=== PATIENT | female | born 1935 | race Caucasian/White ===

== ENCOUNTER 2018-06-19 15:21 | Emergency (ER) | payer MEDICARE, MEDICAID ==
[~2018-06-19] VITALS: Ht 152.4 cm; Wt 75.7 kg
--- NOTE | 2018-06-19 15:48 | NUR ---
AAOX2, BIB FAMILY C/O RIGHT THIGH PAIN X 10 DAYS. DENIES RECENT FALL OR INJURY. RR IS EVEN AND UNLABORED WITH NAD NOTED. SKIN IS WARM AND DRY. DR SHELBY AT BS FOR EVAL.
[2018-06-19] MEDS ORDERED: CYCLOBENZAPRINE 10 MG TABLET PO ONE (16:00)
[2018-06-19] MEDS ORDERED: CYCLOBENZAPRINE 10 MG TABLET ONE (16:00)
[2018-06-19] MEDS ORDERED: NAPROXEN 250 MG TABLET ONE (16:00)
[2018-06-19] MEDS ORDERED: NAPROXEN 250 MG TABLET PO ONE (16:00)
[2018-06-19 16:50] VITALS: BP 121/63
--- NOTE | 2018-06-19 17:00 | NUR ---
Patient discharged to home in stable condition. Written and verbal after care instructions given. Patient verbalizes understanding of instruction.
== END 2018-06-19 17:42 | disposition home or self-care (01) ==
LOC: ER 15:26
DX: M16.11 Unilateral primary osteoarthritis, right hip (principal); I10 Essential (primary) hypertension; Z88.0 Allergy status to penicillin
CPT/HCPCS: 72170-TC; 73502

== ENCOUNTER 2020-01-24 14:18 | Inpatient (IN) | payer MEDICARE, OTHER ==
[~2020-01-24] VITALS: Ht 154.9 cm; Wt 72.6 kg
[2020-01-24] MEDS ORDERED: ASPIRIN 325 MG TABLET PO ONE (14:30)
[2020-01-24] MEDS ORDERED: ASPIRIN 325 MG TABLET ONE (14:34)
--- NOTE | 2020-01-24 14:38 | NUR ---
pt is in bathroom
--- NOTE | 2020-01-24 15:00 | NUR ---
BIBRA FROM HOME TO ER BED 7. AAOX4. NOT IN RESP DISTRTESS, BREATHING EVEN AND UNLABORED. AMBULATORY. PT IS BURUNDIAN SPEAKING, INFORMATION WAS RECEIVED FROM CAREGIVER. CAME IN FOR MID STERNAL CHEST PAIN NON RADIATING 08/15 [place]ARP STARTED @ 1300. PT IN NOTED HYPERTENSIVE @ 182/118. MD WAS AT THE BEDSIDE FOR EVAL. ORDERS RECEIVED NTOED AND CARRIED OUT. IV LINE ESTABLSIHED ON LFA 20G. BLOOD DRAWN AND GIVEN TO TRUCK BODY REPAIRER AT BEDSIDE. PT IS ON MONITOR
[2020-01-24] MEDS ORDERED: LINA145C PO (15:02)
[2020-01-24] MEDS ORDERED: CLON0.5T4 PO (15:02)
[2020-01-24] MEDS ORDERED: MECL-159 PO (15:02)
[2020-01-24] MEDS ORDERED: ROSU10TA29 PO (15:02)
[2020-01-24] MEDS ORDERED: OLME20TA13 PO (15:02)
[2020-01-24] MEDS ORDERED: MEMA1CAP3 PO (15:02)
[2020-01-24] MEDS ORDERED: DEXL60CA3 PO (15:02)
[2020-01-24] MEDS ORDERED: VORT20TA PO (15:02)
[2020-01-24] MEDS ORDERED: TEMA7.5C PO (15:02)
[2020-01-24] MEDS ORDERED: MYRBETRIQ PO (15:02)
[2020-01-24 15:05] LABS: CALCIUM, SERUM 9.3 mg/dL (8.5-10.1); CARBON DIOXIDE 24 mmol/L (21-32); CHLORIDE 104 mmol/L (98-107); CREATININE 0.9 mg/dL (0.6-1.3); GLUCOSE 99 mg/dL (74-106); POTASSIUM 3.9 mmol/L (3.5-5.1); SODIUM SERUM 139 mmol/L (136-145); UREA NITROGEN, BLOOD 22 mg/dL (7-18)
--- NOTE | 2020-01-24 15:07 | NUR ---
COVID SWAB DONE SENT TO LAB
[2020-01-24 15:09] LABS: BASOPHILS # (AUTO) 0.1 /CMM (0.0-0.2); BASOPHILS % (AUTO) 0.6 % (0.0-2.0); EOSINOPHILS % (AUTO) 0.5 % (0.0-6.0); HEMATOCRIT 41 % (33-45); HEMOGLOBIN 13.6 g/dL (11.5-14.8); LYMPHOCYTES # (AUTO) 2.5 /CMM (0.8-4.8); MEAN CORPUSCULAR HGB CONC 33 g/dl (31.0-36.0); MEAN CORPUSCULAR VOLUME 86 fL (82-100); MONOCYTES % (AUTO) 7.1 % (2.0-12.0); NEUTROPHILS # (AUTO) 9.7 /CMM (1.8-8.9); NEUTROPHILS % (AUTO) 72.8 % (43.0-81.0); PLATELET COUNT (AUTO) 383 /CMM (150-450); RED BLOOD CELL COUNT(AUTO) 4.78 MIL/uL (4.0-5.2); WHITE BLOOD COUNT (AUTO) 13.4 K/uL (4.3-11.0)
[2020-01-24] MEDS ORDERED: HYDROCODONE/APAP 5/325MG TABLET PO PRN (16:00)
[2020-01-24] MEDS ORDERED: IV 1/2NS 1000 ML 1,000 ML IV PRN (16:00)
[2020-01-24] MEDS ORDERED: TEMAZEPAM 7.5 MG CAPSULE PO PRN (16:00)
[2020-01-24] MEDS ORDERED: MAG HYDROX/AL HYDROX/SIMETH 30 ML UDC PO PRN (16:00)
[2020-01-24] MEDS ORDERED: ZOLPIDEM TARTRATE 5 MG TABLET PO PRN (16:00)
[2020-01-24] MEDS ORDERED: ONDANSETRON HCL/PF 4 MG/2 ML VIAL IVP PRN (16:00)
[2020-01-24] MEDS ORDERED: ACETAMINOPHEN 325 MG TABLET PO PRN (16:00)
[2020-01-24] MEDS ORDERED: MAGNESIUM HYDROXIDE 30 ML UDC PO PRN (16:00)
[2020-01-24] MEDS ORDERED: MORPHINE SULFATE INJ 2 MG/ML DISP.SYRIN IV PRN (16:00)
[2020-01-24] MEDS ORDERED: Z GUARD REMEDY 2 OZ OINT TP PRN (16:00)
[2020-01-24] MEDS ORDERED: clonazePAM 0.5 MG TABLET PO PRN (16:00)
--- NOTE | 2020-01-24 16:26 | NUR ---
got bed 314-1
--- NOTE | 2020-01-24 16:51 | NUR ---
REPORT GIVEN TO DAVE GALLAGHER FOR [facility]
--- NOTE | 2020-01-24 17:09 | NUR ---
pt transported to unit on gurney with emt and rn at bedside w/ acls protocol. nad noted during transport.
--- NOTE | 2020-01-24 17:10 | NUR ---
Patient admitted from ER received report by Mike/DAVE.
[2020-01-24] MEDS: MEMANTINE HCL 5 MG TABLET PO SCH (17:27)
[2020-01-24] MEDS: MECLIZINE HCL 25 MG TABLET PO SCH (17:27)
--- NOTE | 2020-01-24 18:20 | NUR ---
RN Closing note Patient in bed resting non verbal AO x 2. Pt does no appears discomfort, skin is warm to touch keep clean/dry. Respiratory even and unlabored with oxygen O2sat 97%, no sob or distress observed. Kept locked bed and elevated HOB for ensure airway and aspiration precaution, and lowest position for safety, bed alarm on at all the times, call light within reach, will endorse project director.
--- NOTE | 2020-01-24 18:24 | NUR ---
Patient VTE score is 3 MD made aware and waiting new order for prophylaxis.
--- NOTE | 2020-01-24 19:30 | NUR ---
FIELD TALENT QUALIFICATION SPECIALIST OPENING NOTE RECEIVED PATIENT IN BED. A/OX2, ZAMBIAN SPEAKING, ABLE TO MAKE BASIC NEEDS KNOWN WITH LITTLE PUERTO RICAN. TOLERATING ROOM AIR. RESPIRATIONS ARE EVEN AND UNLABORED. NO S/S SOB NOTED. NO C/O CHEST PAIN AT THIS TIME. EXTERNAL TELE MONITOR READS SINUS RHYTHM HR 78. IN NO APPARENT DISTRESS. IV ACCESS IN LFA #20 PATENT AND SALINE LOCKED. BED IS LOW AND LOCKED, HOB ELEVATED IN SEMI FOWLERS, SIDE RAILS UP X2, EDUCATED PATIENT SIEBEL CRM DEVELOPER LIGHT. WILL CONTINUE TO MONITOR.
[2020-01-24 20:00] VITALS: BP 149/70
--- NOTE | 2020-01-24 20:20 | NUR ---
BRUSH HOLDER INSPECTOR NOTE CONSUMER SCIENCE TEACHER VITAL SHOW TEMP 97.5. ASKED PATIENT IF FEELS COLD, STATED YES. WARM BLANKET PROVIDED. WILL CONTINUE TO MONITOR.
[2020-01-24] MEDS ORDERED: ATORVASTATIN 10 MG TABLET PO SCH (22:00)
--- NOTE | 2020-01-24 23:38 | NUR ---
SALAD COUNTER ATTENDANT NOTE INFORMED DR. SHERIE CHAVEZ THAT PATIENT VTE SCORE IS 3. IF ANY CHEMICAL PROPHYLAXIS WOULD LIKE TO BE ORDERED. MD TELEPHONE ORDER LOVENOX 30MG SQ DAILY. ORDER READ BACK NOTED AND CARRIED OUT.
[2020-01-24] MEDS: NITROGLYCERIN 0.4 MG/TAB BOTTLE SL PRN ×2 (23:50→23:58)
--- NOTE | 2020-01-24 23:53 | NUR ---
EARTH BORING MACHINE OPERATOR NOTE ADMINISTERED PRN NITRO D/T C/O CHEST PAIN 09/14 IN MIDSTERNAL CHEST, HURTS WHEN BREATHING, NON RADIATING. BP 167/84. WILL REASSESS IN 5 MINS Addendum: 01/24/20 at 2358 by MAYRA MCBRIDE RN ALSO PLACED PATIENT ON OXYGEN 2L/MIN VIA NASAL CANNULA
--- NOTE | 2020-01-24 23:58 | NUR ---
FARE COLLECTOR NOTE PATIENT STATES NO CHANGE IN PAIN. ADMINISTERED NITRO X2. BP 158/84. WILL CONTINUE TO MONITOR.
[2020-01-25] VITALS: BP_SYST 134; BP_SYST 151; BP_DIAS 64; BP_DIAS 92
[2020-01-25] MEDS: NITROGLYCERIN 0.4 MG/TAB BOTTLE SL PRN (00:12)
--- NOTE | 2020-01-25 00:15 | NUR ---
CEMENT TILE MAKER NOTE ADMINISTERED NITRO X3. PATIENT STATE PAIN IS WORSE. LATE ADMIN D/T PATIENT WANTED TO AMBULATE TO RESTROOM. BP 166/76 WILL CONTINUE TO MONITOR.
--- NOTE | 2020-01-25 00:28 | NUR ---
AIR TRAFFIC CONTROL SUPERVISOR NOTE PATIENT STATES SHE FEELS NO PAIN WHEN NOT MOVING. ASKED IF WAS STILL IN PAIN. PATIENT STATED SHE WANTED TO TRY TO SLEEP. TRIED TO CLARIFY FOR 5 MINUTES. INFORMED HER TO CALL ME IF AND WHEN SHE IS IN PAIN.
--- NOTE | 2020-01-25 01:34 | NUR ---
cable television program director note patient continues to complain of chest pain. 10/15, non radiating. administered prn morphine 2mg. will continue to monitor.
[2020-01-25 04:00] VITALS: BP 142/81
[2020-01-25 06:14] LABS: BASOPHILS # (AUTO) 0.1 /CMM (0.0-0.2); BASOPHILS % (AUTO) 0.6 % (0.0-2.0); EOSINOPHILS % (AUTO) 0.6 % (0.0-6.0); HEMATOCRIT 35 % (33-45); HEMOGLOBIN 11.7 g/dL (11.5-14.8); LYMPHOCYTES # (AUTO) 1.6 /CMM (0.8-4.8); LYMPHOCYTES % (AUTO) 18.6 % (20.0-44.0); MEAN CORPUSCULAR HGB CONC 34 g/dl (31.0-36.0); MEAN CORPUSCULAR VOLUME 84 fL (82-100); MONOCYTES # (AUTO) 0.6 /CMM (0.1-1.30); MONOCYTES % (AUTO) 6.6 % (2.0-12.0); NEUTROPHILS # (AUTO) 6.5 /CMM (1.8-8.9); NEUTROPHILS % (AUTO) 73.6 % (43.0-81.0); PLATELET COUNT (AUTO) 290 /CMM (150-450); WHITE BLOOD COUNT (AUTO) 8.8 K/uL (4.3-11.0)
--- NOTE | 2020-01-25 07:00 | NUR ---
ORDNANCE ARTIFICER CLOSING NOTE PATIENT IS RESTING IN BED. A/OX2, FORGETFUL. ON OXYGEN 2L/MIN VIA NASAL CANNULA.NO RESP DISTRESS. MANAGED EPISODE OF CHEST PAIN WITH NITRO AND MORPHINE. EXTERNAL TELE MONITOR READS SINUS RHYTHM. NO DISTRESS. IV ACCESS MAINTAINED IN LFA #20 RUNING 1/2NS@75ML/HR. BED REMAINS LOW AND LOCKED, HOB ELEVATED IN SEMI FOWLERS, SIDE RAILS UP X2. WILL ENDORSE TO NEXT SHIFT.
[2020-01-25 07:07] LABS: CALCIUM, SERUM 8.6 mg/dL (8.5-10.1); PHOSPHORUS 3.9 mg/dL (2.5-4.9); POTASSIUM 3.9 mmol/L (3.5-5.1)
[2020-01-25 07:34] LABS: THYROID STIMULATING HORMONE 1.594 uIU/mL (0.358-3.74)
--- NOTE | 2020-01-25 07:54 | NUR ---
CLOTHES DESIGNER NOTE PATIENT IN BED RESTING COMFORTABLY. PATIENT IN NO ACUTE DISTRESS. NO SOB NOTED. PATIENT BREATHING IS EVEN AND UNLABORED.PATIENT ON CARDIAC MONITORING READING SINUS RHYTHM HR 68. PATIENT STATES NO CHEST PAIN AT THIS TIME. PATIENT BED ALARM IS ON. SAFETY PRECAUTIONS IN PLACE. PATIENT BED IS LOCKED AND IN LOWEST POSITION. CALL LIGHT WITHIN REACH. WILL CONTINUE TO MONITOR.
[2020-01-25 08:00] VITALS: BP 168/79
[2020-01-25] MEDS: MECLIZINE HCL 25 MG TABLET PO SCH (08:12)
[2020-01-25] MEDS: MEMANTINE HCL 5 MG TABLET PO SCH (08:13)
[2020-01-25] MEDS ORDERED: ENOXAPARIN SODIUM 30 MG/0.3 ML DISP.SYRIN SQ SCH (09:00)
[2020-01-25] MEDS ORDERED: VALSARTAN 80 MG TABLET PO SCH (09:00)
[2020-01-25] MEDS ORDERED: LOSARTAN POTASSIUM 25 MG TABLET PO SCH (09:00)
[2020-01-25] MEDS ORDERED: ASPIRIN EC 81 MG TABLET.DR PO SCH (09:00)
[2020-01-25] MEDS ORDERED: PANTOPRAZOLE 40 MG TABLET.DR PO SCH (09:00)
[2020-01-25] MEDS ORDERED: IOHEXOL-350 100 ML VIAL IV ONE (09:33)
[2020-01-25] MEDS ORDERED: IV NS 0.9% 250 ML IV ONE (09:33)
[2020-01-25] MEDS: METOPROLOL TARTRATE INJ 5 MG/5 ML AMPUL IVP PRN ×2 (10:05→10:10)
[2020-01-25] MEDS ORDERED: METOPROLOL TARTRATE INJ 5 MG/5 ML AMPUL ONE (10:10)
[2020-01-25] MEDS ORDERED: NITROGLYCERIN 0.4 MG/TAB BOTTLE SL ONE (10:30)
[2020-01-25 10:38] VITALS: BP 147/81
--- NOTE | 2020-01-25 10:40 | NUR ---
RN NOTE PATIENT BACK FROM CT ANGIO HEART. PATIENT TOLERATED WELL. PATIENT IN NO ACUTE DISTRESS. PATIENT BREATHING IS EVEN AND UNLABORED. NO SOB NOTED. WILL CONTINUE TO MONITOR.
--- NOTE | 2020-01-25 14:23 | NUR ---
MS RN NOTE PER MIGUEL INSURANCE CLAIM REPRESENTATIVE SHE SPOKE WITH DR. YEBOAH REGARDING CT ANGIO HEART RESULTS. PER MIGUEL, DR. YEBOAH HAS CLEARED PATIENT FOR DISCHARGE.
--- NOTE | 2020-01-25 15:57 | NUR ---
MS RN NOTE SPOKE WITH TUNNEL KILN FIRER ABOUT PATIENTS CAREGIVER BEING IN THE DAY TIME. INFORMED CUATE FOR POSSIBLE HOME HEALTH AND TIRE BUSTER AT NIGHT TIME. PER CUATE SHE WILL SET UP HOME HEALTH AND DR. NAZARIO MADE AWARE. SPOKE WITH SON ERI AND HE IS AWARE AND AGREEABLE WITH HOME HEALTH AT THIS TIME. AND CAREGIVER WILL ADMINISTRATIVE SERVICES SPECIALIST PATIENT FOR DISCHARGE.
--- NOTE | 2020-01-25 16:01 | NUR ---
MS RN NOTE PATIENT REFUSING SKIN ASSESSMENT. EDUCATED RISKS VS BENEFITS. PATIENT CONTINUED TO REFUSE.
--- NOTE | 2020-01-25 16:56 | NUR ---
MS HONING JOB SETTER NOTE PATIENT MEDICALLY STABLE FOR DISCHARGE. PATIENT IN NO ACUTE DISTRESS. NO SOB NOTED. PATIENT BREATHING IS EVEN AND UNLABORED. PATIENT ON RA TOLERATING WELL, SATURATING >95% SPO2. DC INSTRUCTIONS GIVEN TO PATIENT, CAREGIVER, AND SON. PATIENT, CAREGIVER, AND SON VERBALIZED DC INSTRUCTIONS. PATIENT ID BAND REMOVED. PATIENT IVS REMOVED. PATIENT WITH BELONGINGS AND BELONGINGS LIST SIGNED. CUATE COMMUNITY MIDWIFE ARRANGED HOME HEALTH WITH SON. PATIENT KEPT CLEAN, DRY, AND COMFORTABLE THROUGHOUT SHIFT. PATIENT REFUSED SKIN ASSESSMENT, EDUCATED RISKS VS BENEFITS, PATIENT CONTINUED TO REFUSE. EXPLAINED ALL DUE MEDS. PATIENT GOING HOME WITH CAREGIVER, SON AWARE. PATIENT GOING BY WHEELCHAIR TO CAREGIVER FOR PRODUCT SUPPORT REPRESENTATIVE GOING HOME. MD AWARE OF DISCHARGE.
== END 2020-01-25 16:30 | disposition home health service (06) | DRG 303 ==
LOC: ER 14:20 → TELE 16:30 → MED 01-25 10:00
DX: I25.10 Atherosclerotic heart disease of native coronary artery without angina pectoris (principal); I10 Essential (primary) hypertension; E78.5 Hyperlipidemia, unspecified; D72.829 Elevated white blood cell count, unspecified; G30.9 Alzheimer's disease, unspecified; F02.80 Dementia in other diseases classified elsewhere, unspecified severity, without behavioral disturbance, psychotic disturbance, mood disturbance, and anxiety; R32 Unspecified urinary incontinence; Z79.899 Other long term (current) drug therapy
CPT/HCPCS: 36415; 71045-TC; 75574; 80048-TC; 80061-TC; 83735-TC; 83880; 84100-TC; 84443-TC; 84484-TC; 85025-TC; 87081-TC; 93307-TC; 97112-TC; 97116-TC; 97530-TC; C9803; G0378; J1650; J2270; J3490; J7050; J8597; Q9967

== ENCOUNTER 2020-09-30 19:21 | Emergency (ER) | payer MEDICARE, OTHER ==
[~2020-09-30] VITALS: Ht 157.5 cm; Wt 72.6 kg
[~2020-09-30 19:21] MED LIST: CLON0.5T4 PO; DEXL60CA3 PO; LINA145C PO; MECL-159 PO; MEMA1CAP3 PO; MYRBETRIQ PO; OLME20TA13 PO; ROSU10TA29 PO; TEMA7.5C PO; VORT20TA PO
[2020-09-30 20:20] VITALS: BP 161/88
--- NOTE | 2020-09-30 20:57 | NUR ---
L WRIST X-RAY DONE.
--- NOTE | 2020-09-30 21:50 | NUR ---
DR. ZHANG PAGED PER ER PA ORDER.
[2020-09-30] MEDS ORDERED: ACET-2605 PO (22:02)
[2020-09-30] MEDS ORDERED: TRAM50TA2 PO (22:02)
== END 2020-09-30 22:10 | disposition home or self-care (01) ==
LOC: ER 19:25
DX: S52.572A Other intraarticular fracture of lower end of left radius, initial encounter for closed fracture (principal); G30.9 Alzheimer's disease, unspecified; F02.80 Dementia in other diseases classified elsewhere, unspecified severity, without behavioral disturbance, psychotic disturbance, mood disturbance, and anxiety; I10 Essential (primary) hypertension; Z88.0 Allergy status to penicillin; Z79.899 Other long term (current) drug therapy; X58.XXXA Exposure to other specified factors, initial encounter; Y93.89 Activity, other specified; Y92.89 Other specified places as the place of occurrence of the external cause; Y99.8 Other external cause status
CPT/HCPCS: 73110

== ENCOUNTER 2023-03-22 18:32 | Emergency (ER) | payer MEDICARE, OTHER ==
[~2023-03-22] VITALS: Ht 157.5 cm; Wt 73.0 kg
[~2023-03-22 18:32] MED LIST changes: +ACET-2605 PO; +TRAM50TA2 PO
[2023-03-22] MEDS ORDERED: IBUP-1955 PO (22:08)
[2023-03-22 22:15] VITALS: BP 134/90; TEMP 97.9; O2SAT 98
[2023-03-22] MEDS ORDERED: IBUPROFEN 600 MG TABLET PO ONE (22:30)
== END 2023-03-22 22:15 | disposition home or self-care (01) ==
LOC: ER 18:40
DX: S82.842A Displaced bimalleolar fracture of left lower leg, initial encounter for closed fracture (principal); G30.9 Alzheimer's disease, unspecified; F02.80 Dementia in other diseases classified elsewhere, unspecified severity, without behavioral disturbance, psychotic disturbance, mood disturbance, and anxiety; I10 Essential (primary) hypertension; Z79.899 Other long term (current) drug therapy; Z88.0 Allergy status to penicillin; X50.1XXA Overexertion from prolonged static or awkward postures, initial encounter; Y93.89 Activity, other specified; Y92.89 Other specified places as the place of occurrence of the external cause; Y99.8 Other external cause status
CPT/HCPCS: 73610-TC